=== PATIENT | female | born 1975 | race Caucasian/White ===

== ENCOUNTER → 2021-02-02 08:45 | Outpatient (CLI) | payer BC, SELFPAY ==
[2021-02-02 10:20] LABS: Absolute Lymphocyte Count 1.71 X10^3/uL (0.83-4.51); Absolute Neutrophil Count 5.3 X10^3/uL (2.0-7.7); Basophil# 0.04 X10^3/uL; Basophil% 0.5 % (0-1); Eosinophil# 0.11 X10^3/uL; Eosinophils% 1.4 % (0-5); Hematocrit 39.4 % (37-47); Hemoglobin 13.6 g/dL (12.0-15.0); Lymphocyte # 1.71 X10^3/ul (0.83-4.51); Lymphocyte % 22.2 % (19-41); Mean Corp Hgb Conc 34.5 g/dL (32-36); Mean Corpuscular Hgb 31.9 pg (27.0-32.0); Mean Corpuscular Volume 92.5 fL (81-99); Mean Platelet Vol. 11.6 fl (6.2-12.0); Monocyte# 0.52 X10^3/uL; Monocyte% 6.7 % (0-10); NRBC Flagged by Analyzer 0 % (0-5); Neutrophil % 68.8 % (47-70); Platelet Count 236 K/mm3 (150-450); RBC Distribution Width SD 40.3 fl (35.1-43.9); Red Blood Count 4.26 M/mm3 (4.2-5.4); White Blood Count 7.7 K/mm3 (4.4-11.0)
[2021-02-02 10:59] LABS: Anion Gap 6 (5-15); BUN 9 mg/dL (7-18); BUN/Creat Ratio 13.6 RATIO (10-20); Chloride 110 mmol/L (98-107); Cholesterol 197 mg/dL (200); Creatinine, Serum 0.66 mg/dL (0.55-1.02); EST Glomerular Filtration Rate 102 mL/min (>60); Est Glom Filt Rate - Afr Amer 123 mL/min (>60); Glucose 99 mg/dL (74-106); High Density Lipoprotein 41 mg/dL; Potassium 4.2 mmol/L (3.5-5.1); Sodium Level 138 mmol/L (136-145); Triglycerides 111 mg/dL; Very Low Density Lipoprotein 22 mg/dL (5-40)
== END ==
PROVIDERS: PCP Family Medicine; Referring Provider Family Medicine; Visit Provider Family Medicine
DX: M54.9 Dorsalgia, unspecified (principal); I10 Essential (primary) hypertension; R00.2 Palpitations; Z86.16 Personal history of COVID-19
CPT/HCPCS: 36415; 80048; 80061; 84443; 85025; 86769

== ENCOUNTER → 2021-02-24 07:24 | Outpatient (CLI) | payer BC, SELFPAY ==
--- NOTE | 2021-02-24 07:34 | MRI_ITS ---
EXAM: MR Cervical Spine Without Intravenous Contrast CLINICAL INDICATION: 45 years old, Female; pain INTO R ARM TECHNIQUE: Multiplanar and multisequence MR images of the cervical spine without intravenous contrast were performed. This report was created using [employer] report [employer] technology. COMPARISON: None. FINDINGS: Vertebrae: Unremarkable. Normal vertebral bodies and posterior elements. Normal alignment. Normal craniocervical junction and cervicothoracic junction. No spondylolisthesis. There is preservation of the normal cervical lordosis. Spinal cord: Unremarkable in signal and morphology. Soft tissues: Unremarkable. No prevertebral soft tissue swelling. Lymph nodes: Unremarkable. There is no cervical adenopathy. DISCS/SPINAL CANAL/NEURAL FORAMINA: C2-C3: Unremarkable. Normal disc height and morphology. Normal spinal canal and neuroforamina. C3-C4: Right lateral disc protrusion at C3-C4 causing no significant stenosis. There is some mass effect upon the right-sided nerve root due to this disc protrusion. Moderate left neural foraminal stenosis at C3-C4 due to disc bulge and bony hypertrophy. C4-C5: Moderate left neural foraminal stenosis at C4-C5 due to disc bulge and bony hypertrophy. C5-C6: Degenerative disc bulge at C5-C6 causing ventral effacement of the thecal sac but no spinal canal stenosis. Moderate left neural foraminal stenosis at C5-C6 due to disc bulge and bony hypertrophy. C6-C7: Broad-based disc bulge with left paracentral disc protrusion at C6-C7 causes ventral effacement of the thecal sac but no significant stenosis. C7-T1: Unremarkable. Normal disc height and morphology. Normal spinal canal and neuroforamina. MRI/Spine Cervical (Routine) IMPRESSION: 1. Right lateral disc protrusion at C3-C4 causing no significant stenosis. There is some mass effect upon the right-sided nerve root due to this disc protrusion. 2. Moderate left-sided neural foraminal stenoses in the mid cervical spine due to disc bulges and bony hypertrophy. No spinal canal stenosis. ASSESSMENT: ABNORMAL report - There are abnormal findings in this report which may be related or unrelated to the reason for the exam. Electronically Signed: Andrea Barrios MD at 1:52 EDT Tel , Service support ,
== END ==
PROVIDERS: PCP Family Medicine; Referring Provider Orthopaedic Surgery; Visit Provider Orthopaedic Surgery
DX: M50.21 Other cervical disc displacement, high cervical region (principal); M48.02 Spinal stenosis, cervical region
CPT/HCPCS: 72141

== ENCOUNTER 2021-03-08 16:31 | Inpatient (IN) | payer BC, SELFPAY ==
--- NOTE | 2021-02-23 08:50 | EKG12_ITS ---
Test Reason : PRE-OP Blood Pressure : / mmHG Vent. Rate : 075 BPM Atrial Rate : 075 BPM P-R Int : 176 ms QRS Dur : 074 ms QT Int : 368 ms P-R-T Axes : 071 015 055 degrees QTc Int : 410 ms Normal sinus rhythm with sinus arrhythmia Normal ECG Confirmed by BERNARDINO TRAVIS, KAY ([id number]), director of software development TONY TAYLOR ([id number]) on 02/26/2021 1:19:14 PM Referred By: Renzo Salgado Confirmed By:KAY LEBRON MD
[2021-02-23 09:44] LABS: Absolute Lymphocyte Count 1.76 X10^3/uL (0.83-4.51); Absolute Neutrophil Count 7.1 X10^3/uL (2.0-7.7); Basophil# 0.03 X10^3/uL; Basophil% 0.3 % (0-1); Eosinophil# 0.05 X10^3/uL; Eosinophils% 0.5 % (0-5); Hematocrit 41.5 % (37-47); Hemoglobin 14.2 g/dL (12.0-15.0); Lymphocyte # 1.76 X10^3/ul (0.83-4.51); Lymphocyte % 18.4 % (19-41); Mean Corp Hgb Conc 34.2 g/dL (32-36); Mean Corpuscular Hgb 32.1 pg (27.0-32.0); Mean Corpuscular Volume 93.9 fL (81-99); Monocyte# 0.56 X10^3/uL; Monocyte% 5.9 % (0-10); NRBC Flagged by Analyzer 0 % (0-5); Neutrophil # 7.11 X10^3/uL (2.7-7.7); Neutrophil % 74.5 % (47-70); Platelet Count 241 K/mm3 (150-450); RBC Distribution Width CV 11.9 % (11.6-14.6); RBC Distribution Width SD 41.3 fl (35.1-43.9); Red Blood Count 4.42 M/mm3 (4.2-5.4); White Blood Count 9.6 K/mm3 (4.4-11.0)
[2021-02-23 10:06] LABS: Anion Gap 4 (5-15); BUN 8 mg/dL (7-18); Calcium,Total 9.3 mg/dL (8.5-10.1); Chloride 107 mmol/L (98-107); Creatinine, Serum 0.73 mg/dL (0.55-1.02); EST Glomerular Filtration Rate 91 mL/min (>60); Est Glom Filt Rate - Afr Amer 110 mL/min (>60); Glucose 104 mg/dL (74-106); Potassium 3.7 mmol/L (3.5-5.1); Sodium Level 136 mmol/L (136-145)
[2021-02-23 10:18] LABS: Magnesium 1.9 mg/dL (1.6-2.6)
[2021-02-23 10:45] LABS: HIV - WCH Non-Reactive (Nonreactive); Hepatitis B Surface Antibody Reactive; Hepatitis C Antibody Non-Reactive (Nonreactive)
[2021-02-25 10:33] LABS: Hepatitis A AB, Total Positive (Negative)
--- NOTE | 2021-03-06 16:20 | HP.PCM_ITS ---
History and Physical Date of Admission: 03/08/21 [facility] [id number] [phone] OFFICE VISITDate of Service: 02/02/21 MR#:[id number]:[id number]: BRAIN LEGGETTRep #:[id number]:[id number] Provider:Dr. Renzo Salgado DOAge/Sex: 45/F Location:[place]:Signed Intake Vital Signs 02/02/21 09:28 Height 5 ft 2 in Weight: 129 lb BMI 23.6 Intake Visit Reasons: Cervical spine Accompanied by: Self Is patient in pain?: Yes Pain scale (1-10): 4 Allergies No Known Allergies Allergy (Verified 02/02/21 09:29) Medications ascorbic acid (vitamin C) 500 mg capsule mg PO 02/02/21 [History Confirmed 02/02/21] bupropion HCl 300 mg 24 hr tablet, extended release 300 mg PO QAM 02/02/21 [History Confirmed 02/02/21] cholecalciferol (vitamin D3) 10 mcg (400 unit) capsule 10 mcg PO DAILY 02/02/21 [History Confirmed 02/02/21] hydrocodone 10 mg-acetaminophen 300 mg/15 mL oral solution 15 ml PO Q12H PRN 02/02/21 [History Confirmed 02/02/21] nebivolol 10 mg tablet 10 mg PO DAILY 02/02/21 [History Confirmed 02/02/21] progesterone micronized 100 mg capsule 25 mg PO QAM cap 02/02/21 [History Confirmed 02/02/21] resveratrol-quercetin 100 mg-100 mg tablet tab PO 02/02/21 [History Confirmed 02/02/21] spironolactone 100 mg tablet 100 mg PO DAILY 02/02/21 [History Confirmed 02/02/21] zinc acetate 25 mg (zinc) capsule 25 mg PO DAILY 02/02/21 [History Confirmed 02/02/21] PFSH Medical History (Updated 02/02/21 @ 10:[address] Renzo Salgado DO) Neck pain Surgical History (Updated 02/02/21 @ 09:41 by Seda Barrientos) H/O abdominoplasty H/O breast augmentation H/O: hysterectomy Hx of breast reduction, elective Previous section Social History (Updated 02/02/21 @ 09:42 by Seda Barrientos) Smoking Status: Current every day smoker tobacco type: cigarettes HPI Cervical spine Details: Parts of this documentation were recorded by a scribe, this documentation accurately reflects the service provided and the decisions made by me, Dr. Renzo Salgado, DO 02/02/21 0920. BRAIN LEGGETT is a 45 year old F here today for a new patient Cervical spine pain. Patient states she has constant pain and headaches. Patient states she has two herniated disc in her neck that have been bothering her for years. She has had multiple MRIs Patient states she has gone through PT as well as injections and they all have helped for a little bit but the pain comes right back. Patient states she does have some radiating pain down her left arm. Patient states her fingers on her left arm do go numb. Patient states she does have some popping and clicking. Patient has been to a chiropractor as well as a Massage Therapist, together she felt as if they could maintain the pain. Patient has tried the following conservative treatments for six weeks or greater: [RICE, OTC NSAIDs, home exercises provided by a provider, corticosteroid injections and oral corticosteroids, narcotic and non-narcotic analgesic medication(s), chiropractic car, PT/OT. Patient has found no relief and would like to further investigate their s/s. Therefore, will order a(n) [TEST/STUDY] to appropriately determine if [tx/sx] would be appropriate for the patient. Brain is most pleasant 45-year-old female that has a chief complaint of cervical cephalgia. The pain starts in her neck goes over the mostly left side and occipital region and even over the parietal region.. When the pain in the neck is worse and the pain in the left arm is worse sore the headaches. The second complaint is that of pain that radiates into the left triceps. She denies any weakness in her upper extremities. The headaches come every day and again is the neck pain worsens so do the headaches. She denies any bowel or bladder dysfunction. She denies history of unexplained weight loss night fever sweats or chills. On examination she has a very positive Spurling's to the left side. It is negative to the right. Her left triceps reflex is decreased as compared to the right. The right 1 is 2+ the left 1 is 1+. She also has some mild atrophy of the left triceps as compared to the right triceps. She also has some weakness of the left triceps as compared to the right. She otherwise has good motor strength of all the other major muscle groups of both upper extremities. She has no long tract signs. Clonus is absent Babinski's are downgoing. Plain x-rays of her cervical spine demonstrate that she has a decreased disc space particularly at C5-6 and a little less so at C6-7. There is also loss of cervical lordosis. Our plan is for an MRI scan of the cervical spine. I will see her after the MRI scan and make further recommendations. Note that she has failed conservative measures including physical therapy vehicle care specialist and epidural steroid injection. I will see her after the MRI scan. Coding Level of Care Code Off vis,new,level 3 Diagnoses HNP (herniated nucleus pulposus), cervical M50.20 Time Spent (min) 30 Assessment and Plan Assessment and Plan (1) HNP (herniated nucleus pulposus), cervica
[2021-03-08] VITALS (11 sets, daily range): BP systolic 115–137; BP diastolic 77–91; PULSE 80–108; RESP 16–18; TEMP 36.1–36.6; O2SAT 94–100; BMI 23.5
[2021-03-08] MEDS: Lactated Ringers 1,000 ML 100 ML IV ×3 (11:00→16:22)
[2021-03-08] MEDS: dexAMETHasone 10 MG/ML Vial 8 MG IV (11:03)
[2021-03-08] MEDS: Acetaminophen 500 MG Tablet 1000 MG PO (11:03)
[2021-03-08 11:20] LABS: Bedside Glucose 83 mg/dL (70-110)
--- NOTE | 2021-03-08 12:00 | DISC_PTH ---
PATIENT: BRAIN LEGGETT LOC: MS2 U#:[id number] AGE/SX: 45/F ROOM: [facility] RE03/08/[address]: Dr. Renzo Salgado DO : 1975 BED: 1 DIS: 03/09/2021 SPEC #: [id number] RECD: 03/09/21 08:44 STATUS: LAURA REQ #: [id number] ANGELINA: 03/08/21 12:[address]: Renzo Salgado DEPT: SURGICAL PATHOLOGY RECD BY: Estelle Willis ENTERED: 03/09/21 11:54 SP TYPE: DISC OTHR DR: Dr. Navjot Singer MD Tissues: Intervertebral disc, NOS Procedures: Decalcification bone/plaque Surgery Specimen Level III HEADER OPERATION: ERAS, left anterior cervical fusion C5-6 PRE-OP DIAGNOSIS: Herniated nucleus pulposus, cervical TISSUE SUBMITTED: Cervical disc C5-6 MICROSCOPIC DIAGNOSIS Cervical disc C5-6: Fragments of fibrocartilaginous tissue with reactive and degenerative changes and a few minute fragments of bone. FABIOLA:gladys 03/14/2021 MICROSCOPIC DESCRIPTION Slides are reviewed. GROSS DESCRIPTION Received in fixative is one container labeled with the patient's name and designated cervical disc C5-6. The specimen consists of multiple indurated pieces of paulson-white tissue mixed with fragments of bone that in aggregate measure 3 x 2.5 x 0.3 cm. The largest piece measures 1.5 cm in greatest dimension. The entire specimen is submitted in one cassette after decalcification. / FABIOLA:gladys 03/09/21 TC:5 CPT: 86737, 37683
--- NOTE | 2021-03-08 12:45 | RAD_ITS ---
STUDY: X-RAY - CERVICAL SPINE REASON FOR EXAM: Female, 45 years old. Fusion at C5-6. Intraoperative image. TECHNIQUE: Single lateral view of the cervical spine was obtained. COMPARISON: None FINDINGS: Single lateral view shows anterior localization device at the anterior and inferior aspect of the C5 vertebral body. NG and endotracheal tubes are noted. RAD/Spine 1 View Any Level IMPRESSION: Single lateral localization image. Electronically Signed: Ebenezer Zuniga MD at 13:49 EDT , Service support ,
[2021-03-08] MEDS: Cefazolin 2 GM in 0.9% Normal Saline 100 ML IV (13:11)
[2021-03-08] MEDS: Heparin 10,000 UNITS/10 ML Vial 10000 UNITS (13:20)
[2021-03-08] MEDS: Calcium Chloride 1 GM/10 ML Syringe (13:20)
[2021-03-08] MEDS: Thrombin 5,000 IU Kit (PSA) 5,000 IU Vial 5000 IU TOPICAL (13:20)
[2021-03-08] MEDS: THROMBIN (RECOMBINANT) 20,000 UNIT VIAL 20000 UNIT TOPICAL (13:20)
--- NOTE | 2021-03-08 14:07 | RAD_ITS ---
EXAM: XR CERVICAL SPINE, 1 VIEW CLINICAL INDICATION: ANTERIOR FUSION C5-6 TECHNIQUE: Lateral view of the cervical spine. This report was created using [employer] report [employer] technology. COMPARISON: None. FINDINGS: VERTEBRAE: Unremarkable. Preserved vertebral body height. No acute fracture. No spondylolisthesis. Preservation of the normal cervical lordosis. No significant facet arthropathy. DISC SPACES: There is a metal measurement on the level C4-5. Degenerative findings in the cervical spine. SOFT TISSUES: Unremarkable. No prevertebral soft tissue widening. LUNG APICES: Clear. TUBES, LINES AND DEVICES: Endotracheal tube in place. RAD/Spine 1 View Any Level IMPRESSION: There is a metal measurement on the level C4-5. Electronically Signed: Zach Cortés MD at 14:38 EDT , Service support ,
--- NOTE | 2021-03-08 14:09 | RAD_ITS ---
EXAM: XR CERVICAL SPINE, 1 VIEW CLINICAL INDICATION: ANTERIOR FUSION C5-6 TECHNIQUE: Lateral view of the cervical spine. This report was created using [employer] report [employer] technology. COMPARISON: None. FINDINGS: VERTEBRAE: Unremarkable. Preserved vertebral body height. No acute fracture. No spondylolisthesis. Preservation of the normal cervical lordosis. No significant facet arthropathy. DISC SPACES: There is a metal measurement on the level C5-6. Degenerative findings in the cervical spine. SOFT TISSUES: Unremarkable. No prevertebral soft tissue widening. LUNG APICES: Clear. TUBES, LINES AND DEVICES: Endotracheal tube in place. RAD/Spine 1 View Any Level IMPRESSION: There is a metal measurement on the level C5-6. Electronically Signed: Zach Cortés MD at 17:34 EDT , Service support ,
--- NOTE | 2021-03-08 15:20 | RAD_ITS ---
EXAM: XR CERVICAL SPINE, 1 VIEW CLINICAL INDICATION: FUSION C5-6 TECHNIQUE: Lateral view of the cervical spine. This report was created using [employer] report generation technology. COMPARISON: None. FINDINGS: VERTEBRAE: Unremarkable. Preserved vertebral body height. No acute fracture. No spondylolisthesis. Preservation of the normal cervical lordosis. No significant facet arthropathy. DISC SPACES: Anterior fusion plate at C5-6. Fusion cage at C5-6. SOFT TISSUES: Unremarkable. No prevertebral soft tissue widening. LUNG APICES: Clear. RAD/Spine 1 View Any Level IMPRESSION: Anterior fusion plate at C5-6. Fusion cage at C5-6. Electronically Signed: Zach Cortés MD at 17:58 EDT , Service support ,
--- NOTE | 2021-03-08 16:45 | PCM.OPRPT ---
Report of Operation Date of Procedure: 03/08/21 Description of Surgical Findings:: Preoperative diagnosis: Degenerative disc disease C5-6 Postoperative diagnosis: The same Procedure: #1 anterior cervical fusion C5-6 CPT code 04477 #2 application of spine plate C5-6 CPT code 13271/59 #3 insertion of cage C5-6 CPT code 16926 Surgeon: Dr. Salgado corporate law assistant: Corazon ALONZO Anesthesia: General endotracheal anesthesia administered by [facility] EBL: 20 cc Drains: 1/4 inch Tamiko Complications: None Procedure: Patient was taken to the OR where she was placed in the supine position on the operating table she was then placed under general endotracheal anesthesia. A Nielsen catheter was inserted and neuro monitoring placed their leads and the patient. A preoperative x-ray was taken with a needle taped to the side of the neck to assure that we would be making the incision at the proper level. This was marked with a small laceration using the end of a second needle. The neck and the right iliac crest were prepped and draped in standard fashion. First I made a puncture incision over the ASIS on the right and entered with a Jamshidi needle. 60 cc of bone marrow aspirate were then obtained and handed off to the electronic organ technician in the room. Prior to the prep 60 cc of venous blood were also taken from the patient in order to obtain platelet rich plasma (PRP) and platelet poor plasma (PPP). This was used at the closure. I then made my incision starting in the midline in line with longer's lines and one of her normal creases. Subcutaneous tissues were incised the length of the skin incision. Subcutaneous tissues were undermined in both cephalad and caudad direction. I then split the platysma longitudinally in line with its fibers. Also she was rather hard approach even though she was small. I was finally able to go around the strap muscles exploit the precervical fascia followed by the expectation of the pretracheal fascia. In this fashion I was able to find the anterior longitudinal ligament. We first took an x-ray and found that the needle was marked at L4-5 simply moved 1 down and took another x-ray 2 minutes later to confirm that we were at C5-6 and at which we were. I then marked the disc by cauterizing a hole in the front of the disc. I cauterized coli muscles on either side and put the v belt skiver retractors in place. This gave me reasonable exposure to the anterior part at C5-6. I then cut the anterior annulus with a 15 blade removed nucleus from within the disc space with pituitary rongeurs. I then put the distractor on the right side distracting the left side. Using a dick bur I burred the uncinate process down to a thin shell. I then remove the shell of a small angled curettes. This completely decompressed the base of the C6 nerve. A nerve hook was then used to feel the foramen and it was quite open after this. I then removed all remaining cartilage off both endplates with sharp curettes. Distractor was put on the left side and I removed the remaining disc and cartilage off the endplates on the right side. Using the dick bur I was able to remove the anterior osteophytes particularly the one at C5. This flattened it to make it better for the plate. I also used it to flatten the surface thinning the uncinate processes on both sides. We then tested it with a 6 mm followed by 7 mm trial. Found that we would use a small 7 degree 7 mm high cage. I then broached the space several times to get bleeding bone on the endplates. The cage was then filled with demineralized bone matrix and it was then soaked in patient's own stem cells. With anesthesia blood on the head tamped into place and countersunk it a couple of millimeters. We ended up using a 24 mm anterior plate I did the plate self slightly to bend it I then centered at and punched the first of 4 holes with an awl 1 was done 1 at a time I used 12 mm screws to into C5 and 2 into C6. This was seen on the lateral projection on x-ray was found to be very satisfactory with good position of the plate the screws and the cage. Note that during the course of the case we thoroughly irrigated with) amounts of sterile saline to prevent infection. Lastly we placed an amnionic membrane directly over the anterior plate to prevent adhesions to the NICU or esophagus. The instrumentation was removed and 1/4 inch Tamiko put in place. I then closed the platysma running fashion with 5-0 Vicryl. Followed by the closure of subcutaneous tissues in interrupted fashion with 5-0 Vicryl in a running 5-0 nylon was used to run the skin from one side to the other. Note that prior to closure we placed the PRP in the wound and after closure we placed the PPP on the wound but it dry some prior to putting the dressings in place. Note that we did leave a safety pin through the drain to prevent a suction into the wound. This is the end of operative summary on Dalisadia Syed. This is Dr. Salgado dictating.
--- NOTE | 2021-03-08 16:51 | SUR.PHASEI ---
thigh high teds placed on patient. soft cervical collar placed on patient. Anesthesia placed IV in OR. No loop was used. Unable to remove extension tubing in PACU. Green caps placed on all hubs.
[2021-03-08] MEDS: dexAMETHasone 4 MG/ML Vial IV (18:27)
[2021-03-08] MEDS: oxyCODONE 5 MG Tablet PO (19:27)
[2021-03-08] MEDS: diazePAM 5 MG Tablet PO (21:59)
[2021-03-08] MEDS: Morphine 4 MG/ML Syringe IV (21:59)
[2021-03-08] MEDS: Cefazolin 1 GM/50 ML BAG IV (22:11)
[2021-03-09] MEDS: oxyCODONE 5 MG Tablet PO ×2 (00:15→06:38)
[2021-03-09] MEDS: dexAMETHasone 4 MG/ML Vial IV (00:16)
[2021-03-09] MEDS: Lactated Ringers 1,000 ML 100 ML IV (00:20)
[2021-03-09 02:49] VITALS: BP 107/72; PULSE 95; RESP 18; TEMP 36.7; O2SAT 100
[2021-03-09] MEDS: Morphine 4 MG/ML Syringe IV ×4 (02:52→12:59)
[2021-03-09] MEDS: diazePAM 5 MG Tablet PO ×2 (03:23→11:45)
[2021-03-09] MEDS: Cefazolin 1 GM/50 ML BAG IV (04:39)
[2021-03-09] MEDS: dexAMETHasone 4 MG/ML Vial 2 MG IV (06:39)
[2021-03-09 06:42] VITALS: BP 112/69; PULSE 94; RESP 18; TEMP 36.6; O2SAT 96
[2021-03-09] MEDS: 0.9% Saline Lock 10 ML Syringe IV (08:44)
[2021-03-09 08:45] VITALS: BP 125/78; PULSE 90; RESP 18; TEMP 36.8; O2SAT 97
[2021-03-09] MEDS: Nebivolol HCl 10 MG Tablet PO (10:22)
--- NOTE | 2021-03-09 12:56 | PCM.DC ---
Discharge Instructions Follow Up Care Test Results: Test results from this visit will be discussed in further detail at your follow-up appointment, if applicable. Discharge Plan Admission Admit Date/Time: 03/08/21 16:31 Attending Provider: Renzo Salgado Primary Care Provider: Navjot Singer Discharge Orders/Prescriptions Prescriptions: No Action Bystolic 10 mg tablet 10 mg PO DAILY RF: 0 progesterone micronized 100 mg capsule 25 mg PO QAM RF: 0 spironolactone 100 mg tablet 100 mg PO BID RF: 0 ascorbic acid (vitamin C) 500 mg capsule 2,000 mg PO DAILY RF: 0 Galzin 25 mg (zinc) capsule 150 mg PO DAILY RF: 0 resveratrol-quercetin 100-100 mg tablet 1 tab PO DAILY RF: 0 cholecalciferol (vitamin D3) [Vitamin D3] 50 mcg (2,000 unit) Capsule 50 mcg PO DAILY RF: 0 hydrocodone-acetaminophen 10-325 mg tablet 1 tab PO Q8H PRN (Reason: pain) 30 Days Qty: 90 RF: 0 diazepam [Valium] 5 mg tablet 5 mg PO TID PRN (Reason: muscle spasm) 10 Days Qty: 30 RF: 0 Referrals / Follow Up: Navjot Singer MD [Primary Care Provider] - Disposition Disposition (needs filled in before D/C Order can be placed): Home, Self Care
--- NOTE | 2021-03-09 13:03 | DS.PCM_ITS ---
Providers Date of Admission: 03/08/21 Primary Care Physician: Dr. Navjot Singer MD Reason For Visit: ANTERIOR CERVICAL FUSION C6-C7 Medications at Discharge Home Medications ascorbic acid (vitamin C) 500 mg capsule 2,000 mg PO DAILY 02/02/21 nebivolol 10 mg tablet 10 mg PO DAILY 02/02/21 progesterone micronized 100 mg capsule 25 mg PO QAM cap 02/02/21 resveratrol-quercetin 100 mg-100 mg tablet 1 tab PO DAILY 02/02/21 spironolactone 100 mg tablet 100 mg PO BID 02/02/21 zinc acetate 25 mg (zinc) capsule 150 mg PO DAILY 02/02/21 hydrocodone 10 mg-acetaminophen 325 mg tablet 1 tab PO Q8H PRN 30 Days #90 tab 02/14/21 cholecalciferol (vitamin D3) [Vitamin D3] 50 mcg PO DAILY 02/22/21 diazepam 5 mg tablet 5 mg PO TID PRN 10 Days #30 tab 03/09/21 Hospital Course Summary of Care Provided Hospital Course: This is a Damian nieves discharge summary on Quita Syed. This patient was admitted on 03/08/2021 is being discharged on 03/09/2021 the admi tting diagnosis was degenerative disc disease C5-6. The discharge diagnoses are the same. Hospital course was unremarkable. Today the dressing was changed and the drain removed. The incision is dry and healing well. He states that she has a little trouble swallowing has some pain in the back of her neck but her headaches that she has had every day for a number of years is completely gone. I gave her directions regarding the care of her dressing when to shower etc. She already has pain pills at home so she does not need any at this time. She is to return to my clinic in 1 week. This is the end of discharge summary Landon Syed. This is Dr. Salgado dictating. Weight / BMI Weight Weight: 128 lb 8.472 oz Body Mass Index (BMI) 23.5 ABG / Lab / Microbiology Data Result Diagrams: 02/23/21 09:01 02/23/21 09:01 Microbiology: Microbiology 03/07/21 09:30 Interface Orders SARS-CoV-2 Antigen (Rapid) - Final 02/23/21 09:01 Swab (Method) Nasal Screen MRSA/MSSA - Final Radiography Diagnostic Testing: Radiology Impression Spine X-Ray 03/08/21 12:45 IMPRESSION: Single lateral localization image. Electronically Signed: Ebenezer Zuniga MD at 13:49 EDT , Service support , Spine X-Ray 03/08/21 14:07 IMPRESSION: There is a metal measurement on the level C4-5. Electronically Signed: Zach Cortés MD at 14:38 EDT , Service support , Spine X-Ray 03/08/21 14:09 IMPRESSION: There is a metal measurement on the level C5-6. Electronically Signed: Zach Cortés MD at 17:34 EDT , Service support , Spine X-Ray 03/08/21 15:20 IMPRESSION: Anterior fusion plate at C5-6. Fusion cage at C5-6. Electronically Signed: Zach Cortés MD at 17:58 EDT , Service support , Meaningful Use Info Meaningful Use Diagnoses (Choose all that apply): None applicable Discharge Plan Admission Admit Date/Time: 03/08/21 16:31 Attending Provider: Renzo Salgado Primary Care Provider: Navjot Singer Discharge Orders/Prescriptions Prescriptions: No Action Bystolic 10 mg tablet 10 mg PO DAILY RF: 0 progesterone micronized 100 mg capsule 25 mg PO QAM RF: 0 spironolactone 100 mg tablet 100 mg PO BID RF: 0 ascorbic acid (vitamin C) 500 mg capsule 2,000 mg PO DAILY RF: 0 Galzin 25 mg (zinc) capsule 150 mg PO DAILY RF: 0 resveratrol-quercetin 100-100 mg tablet 1 tab PO DAILY RF: 0 cholecalciferol (vitamin D3) [Vitamin D3] 50 mcg (2,000 unit) Capsule 50 mcg PO DAILY RF: 0 hydrocodone-acetaminophen 10-325 mg tablet 1 tab PO Q8H PRN (Reason: pain) 30 Days Qty: 90 RF: 0 diazepam [Valium] 5 mg tablet 5 mg PO TID PRN (Reason: muscle spasm) 10 Days Qty: 30 RF: 0 Referrals / Follow Up: Navjot Singer MD [Primary Care Provider] - Disposition Disposition (needs filled in before D/C Order can be placed): Home, Self Care
--- NOTE | 2021-03-09 13:25 | CASEMGMT ---
LASHONDA DAMON OBSTETRICS TECH CM to room to meet with patient for initial transition planning/care coordination assessment. LASHONDA DAMON introduced self and role at [facility]. Pt voices understanding and consents to assessment at this time. Pt sitting on edge of bed in no distress at this time. Kelin Beltran, @ bedside. Pt is A/O at this time and answers all questions appropriately. Care providers, pharmacy, and demographics verified/updated at this time. PCP: Dr Singer Specialists: Dr Salgado--ortho Preferred Pharmacy: [facility] Insurance: [place] Prescription Benefit: Has Rx benefits, but states, It's terrible, though. [facility] usually uses [facility] instead Living Will/HPOA: [facility] does not have LW or HCPOA . Interested in more information. Provided information on advanced directives and given Social Service rac card with number to call if chooses in the future to utilize [facility] social work for advanced directive completion. Patient expresses understanding and appreciation. LNOK: Kelin Beltran Living Arrangements: Lives alone. Independent. Kelin Beltran, lives out of state but came to [place] to be w/pt for surgery. Transportation: Pt states drives self and states no transportation concerns at this time. DME: Denies using any DME and denies needs. HHC/SNF: No hx of either. No needs identified. Pt wishes to return home and states has no concerns with going home at time of discharge. PLAN: Home David COSTELLO RN, CM
--- NOTE | 2021-03-09 13:34 | NURSING ---
Dr. Salgado gave phone order to continue home meds at [facility]
[2021-03-09 13:46] VITALS: BP 105/54; PULSE 94; RESP 18; TEMP 36.7; O2SAT 97
== END 2021-03-09 13:50 | disposition home or self-care (01) | DRG 473 ==
LOC: SDC 18:12 → MS2 18:12
PROVIDERS: Anesthesiology; Admitting Provider Orthopaedic Surgery; PCP Family Medicine; Referring Provider Orthopaedic Surgery; Visit Provider Orthopaedic Surgery
PROC: (CPT 22551; principal; 2021-03-08 11:30)
DX: M50.322 Other cervical disc degeneration at C5-C6 level (principal); M50.20 Other cervical disc displacement, unspecified cervical region; I10 Essential (primary) hypertension; F17.210 Nicotine dependence, cigarettes, uncomplicated; Z79.899 Other long term (current) drug therapy
CPT/HCPCS: 36415; 72020; 80048; 82962; 83735; 85025; 86703; 86706; 86708; 86803; 87077; 87081; 87426; 88304; 88311; 93005; 97802; 99251; C1713; C9803; J7120; A4216; G0463; J2405; J3475

== ENCOUNTER 2021-06-04 14:11 | Outpatient (CLI) | payer SELFPAY ==
--- NOTE | 2021-06-04 14:21 | CT_ITS ---
STUDY: LOW DOSE CT LUNG CANCER SCREENING REASON FOR EXAM: Female, 46 years old. Current Smoker, 1 pack per day x20 years RADIATION DOSAGE (If Supplied By Facility): CTDIvol = ( 2.01 ) mGy, DLP = ( 75.75 ) mGycm TECHNIQUE: No contrast was administered. Low dose technique was utilized (average mAS-38 and kVp 120). 1.25 mm axial source images with a slice interval of 1.25-mm were reconstructed in lung windows. 2.5 mm axial source images with a slice interval of 2.5-mm were reconstructed in lung windows. 5.0 mm axial source images with a slice interval of 5.0-mm were reconstructed in soft tissue windows. Nodule measured using lung windows on PACS and/or independent workstation with automated measurement of minimum and maximum diameter. Nodule measurement reported as average diameter rounded to the nearest whole number. Growth is defined as an increase ins size of greater than 1.5 mm. COMPARISON: None. FINDINGS: Lung windows show mildly hyperexpanded lungs with underlying emphysema. Nonspecific pleural thickening noted in the apices. There is no suspicious noncalcified mass or nodule. No organized infiltrate or effusion. Soft tissue windows show intact bilateral breast implants. Thyroid gland is unremarkable. No suspicious adenopathy. No pleural or pericardial effusions. Limited cuts through the upper abdomen do not show a suspicious abnormality. CT/Low Dose CT Lung Screening IMPRESSION: Lung-RADS category 2 - Continue annual screening with LDCT in 12 months. IMPORTANT NOTES FOR USE: ACR Lung-RADS Version 1.1 Assessment Categories Release Date: 2018 Category: Coded 0-4 bases on nodule(s) with highest degree of suspicion. Negative screen is defined as categories 1 and 2; a positive screen is defined as categories 3 and 4. Category 3 and 4A nodules that are unchanged on interval CT should be coded as category 2, and individuals returned to screening in 12 months. Category 4X: Category 3 or 4 nodules with additional imaging findings that increase the suspicion of lung cancer, such as spiculation, GGN that doubles in size in 1 year, enlarged lymph notes, etc. Category Modifiers: S (significant finding unrelated to lung cancer) Electronically Signed: Bakari Thayer MD at 14:58 EST , Service support ,
== END 2021-06-04 23:59 | disposition home or self-care (01) ==
LOC: CT 14:16
PROVIDERS: PCP Family Medicine; Referring Provider Orthopaedic Surgery; Visit Provider Orthopaedic Surgery
DX: Z12.2 Encounter for screening for malignant neoplasm of respiratory organs (principal); Z87.891 Personal history of nicotine dependence; Z80.1 Family history of malignant neoplasm of trachea, bronchus and lung
CPT/HCPCS: 71271

== ENCOUNTER → 2022-05-08 | Outpatient (CLI) | payer BC, SELFPAY ==
--- NOTE | 2022-05-08 13:56 | MRI_ITS ---
HISTORY: Burning pain between shoulder blades. TECHNIQUE: Multiplanar and multisequence MR images of the thoracic spine were obtained without contrast. 161 images. COMPARISON: XR 04/22/2022. FINDINGS: VERTEBRAE: Artifact from C5-C6 anterior spinal fusion hardware. Vertebral body heights maintained. T8 vertebral body hemangioma and a Schmorl''s node at the superior T12 endplate incidentally noted. VERTEBRAL ALIGNMENT: No anterior or posterior subluxation. SPINAL CORD: Thoracic cord signal and morphology within normal limits. Conus medullaris at L1. SOFT TISSUES: No paraspinal fluid collection. INTERVERTEBRAL DISCS: Posterior disc bulge osteophyte complex at C6-7 resulting in mild-moderate central canal stenosis and abutment of the ventral cord based on the sagittal images. No significant posterior disc protrusion, central canal stenosis, or foraminal narrowing in the thoracic spine. MRI/Spine Thoracic (Routine) IMPRESSION: No significant posterior disc herniation, spinal canal stenosis, or foraminal narrowing in the thoracic spine. ACDF C5-6 with degenerative disc disease of C6-7. Electronically Signed: Peggy Yee MD at 15:40 EST ,
== END | disposition home or self-care (01) ==
LOC: MRI 13:56
PROVIDERS: PCP Family Medicine; Referring Provider Orthopaedic Surgery; Visit Provider Orthopaedic Surgery
DX: M99.02 Segmental and somatic dysfunction of thoracic region (principal)
CPT/HCPCS: 72146

== ENCOUNTER → 2023-06-19 | Outpatient (CLI) | payer BC, SELFPAY | END | disposition home or self-care (01) | LOC: PSN 10:30 | PROVIDERS: PCP Family Medicine; Referring Provider Orthopaedic Surgery; Visit Provider Orthopaedic Surgery | DX: U07.1 COVID-19 (principal) | CPT/HCPCS: 87635 ==

== ENCOUNTER → 2023-07-12 | Outpatient (CLI) | payer BC, SELFPAY ==
--- NOTE | 2023-07-12 09:04 | CT_ITS ---
EXAM: CT CHEST, LUNG CANCER SCREENING WITHOUT INTRAVENOUS CONTRAST CLINICAL INDICATION: smoker TECHNIQUE: Helically acquired images were obtained of the chest without intravenous contrast using low dose (LDCT) lung cancer screening protocol. This CT exam was performed using one or more of the following dose reduction techniques: automated exposure control, adjustment of the mA and/or kV according to patient size, and/or use of iterative reconstruction technique. COMPARISON: MRI of thoracic spine, 05/08/[address] lung cancer screening, 06/04/2021. FINDINGS: LUNGS AND PLEURAL SPACES: Mild apical scarring bilaterally. Unchanged, 3 mm or solid nodule in the right upper lobe (image 60, series 2). Unchanged 2 mm solid nodule in the right upper lobe (image 111, series 2). Unchanged calcified nodule in the left lower lobe. Unchanged solid 5 mm nodule in the right lower lobe (image 166, series 2). No pleural effusion or thickening. No pulmonary mass. No bronchiectasis. No airway filling defect. No focal airspace disease. HEART: No significant abnormality. Heart size is normal. No pericardial effusion. No significant coronary artery calcifications. MEDIASTINUM: No significant abnormality. No mediastinal or hilar adenopathy. Esophagus is unremarkable. No hiatal hernia. THYROID: No significant abnormality. No thyroid lesions. BONES/JOINTS: Mild degenerative changes in the spine. No suspicious lytic or blastic abnormality. SOFT TISSUES: Bilateral mammoplasty implants. VASCULATURE: No significant abnormality. Thoracic aorta is non-dilated. LYMPH NODES: No significant abnormality. No enlarged lymph nodes. CT/Low Dose CT Lung Screening IMPRESSION: Pulmonary nodules as above. ACR Lung CT Screening Reporting And Data System (Lung-RADS) score: 2 - Benign Appearance or Behavior. Recommend continued annual screening with a low-dose CT (LDCT) in 12 months. Electronically Signed: Ameya Kenny DO at 16:58 EST ,
== END | disposition home or self-care (01) ==
PROVIDERS: PCP Family Medicine; Referring Provider Orthopaedic Surgery; Visit Provider Orthopaedic Surgery
DX: Z12.2 Encounter for screening for malignant neoplasm of respiratory organs (principal); Z87.891 Personal history of nicotine dependence; Z80.1 Family history of malignant neoplasm of trachea, bronchus and lung
CPT/HCPCS: 71271